=== PATIENT | female | born 1945 | race Hispanic/Latino ===

== ENCOUNTER 2018-06-22 09:37 | Day surgery (SDC) | payer MEDICARE ==
[2016-11-01 11:09] VITALS: BMI 32.3
[2018-06-22] MEDS ORDERED: ceFAZolin 1 gm in NS 1 GM/100 ML BAG IVPB ONE (10:03)
[2018-06-22] MEDS ORDERED: HEPARIN-NS 5,000 UNITS/500 ML 5,000 UNIT/500 ML BAG IV ONE (10:03)
[2018-06-22] MEDS ORDERED: Lidocaine Hydrochloride 10 ML INJ ONE (10:04)
[2018-06-22] MEDS ORDERED: Propofol 10 mg/ml Inj (20 ML) ONE (10:27)
[2018-06-22] MEDS ORDERED: Lidocaine Hydrochloride 5 ML INJ ONE (10:28)
[2018-06-22] MEDS ORDERED: Midazolam 2 MG/2 ML VIAL ONE (10:48)
[2018-06-22] MEDS ORDERED: Lactated Ringer's 1,000 ML IV ONE (11:40)
--- NOTE | 2018-06-22 11:59 | PCM.SURG1 ---
Surgeon's Initial Post Op Note - Surgeon's Notes Surgeon: Leonardo Toth MD Polymer Specialist: NONE Type of Anesthesia: IV Sedation Pre-Operative Diagnosis: Right breast cancer Operative Findings: Patent left IJV Post-Operative Diagnosis: Right breast cancer Operation Performed: Port placement via left IJV Specimen/Specimens Removed: NONE Estimated Blood Loss: EBL {In ML}: 2 Blood Products Given: N/A Drains Used: No Drains Post-Op Condition: Good Date of Surgery/Procedure: 06/22/18 Time of Surgery/Procedure: 11:30
--- NOTE | 2018-06-22 12:00 | CP.SDSHP ---
Same Day Surgery H & P - History Proposed Procedure: Port placement Pre-Op Diagnosis: Breast cancer - Allergies Allergies: Allergies No Known Allergies Allergy (Verified 01/29/16 12:41) - Physical Exam Vital Signs: Vital Signs 06/22/18 09:50 Temperature 97.7 F Pulse Rate 70 Respiratory 20 Rate Blood Pressure 141/89 O2 Sat by Pulse 94 L Oximetry Mental Status: Alert & Oriented x3 Neuro: WNL Heart: WNL Lungs: WNL GI: WNL - Impression Impression: Pt with right breast cancer referred for port placement. Plan left IJV port placement. Informed consent obtained. Pt. Evaluated Today:Candidate for Anesthesia & Procedure: Yes ( 3 Malampati 3 ) - Date & Time Date: 06/22/18 Time: 10:30 Short Stay Discharge - Short Stay Discharge Admitting Diagnosis/Reason for Visit: MALIGNANT NEOPLASM OF UNSP SITE OF RIGHT FEMALE BR Disposition: HOME/ ROUTINE
[2018-06-22] MEDS ORDERED: HYDROmorphone 0.5 mg/0.5 ml ISec IVP PRN (12:55)
[2018-06-22 14:57] VITALS: BP 150/90; PULSE 70; RESP 16; TEMP 97.7; O2SAT 96
--- NOTE | 2018-06-25 13:05 | RAD ---
Date of service: 06/22/2018 PROCEDURE: Intraoperative Fluoroscopy. HISTORY: Breast cancer FINDINGS: Fluoroscopic assistance was provided for left-sided Port-A-Cath placement. Please refer to the operative report from NAIDA Louis.
== END 2018-06-22 14:45 | disposition home or self-care (01) ==
LOC: C.SDS 09:37
PROVIDERS: ATTEND Radiology Vascular & Interventional Radiology
DX: C50.911 Malignant neoplasm of unspecified site of right female breast (principal); Z17.0 Estrogen receptor positive status [ER+]
CPT/HCPCS: 82948; 96416; C1788; J0690; J1170; J1644; J2250; J2704; J3010; J7040; J7120